=== PATIENT | female | born 1955 | race Caucasian/White ===

== ENCOUNTER → 2019-03-05 | Outpatient (CLI) | payer MEDICARE ==
--- NOTE | 2019-03-12 09:18 | MY ---
INDICATION: Cancer screening. MAMMOGRAPHY: Two-view bilateral digital screening 2-D mammography with breast tomosynthesis and computer aided detection was obtained 03/05/19 and compared with mammograms dating back to 07/07/15. DENSITY: Mildly asymmetrical scattered areas of fibroglandular density are noted. No significant interval change, dominant mass lesions, pathologic calcifications , skin thickening, or dimpling could be identified to suggest malignancy. IMPRESSION: Mammography negative for malignancy. Yearly screening mammography recommended for follow-up. Category 1, negative. A letter will be sent to the patient indicating the results of her mammogram in lay terminology. MOSHE
== END ==
LOC: FB.DI 10:50
PROVIDERS: ATTEND Family Medicine
DX: Z12.31 Encounter for screening mammogram for malignant neoplasm of breast (principal)
CPT/HCPCS: 77063; 77067